=== PATIENT | female | born 1975 | race Two or more races ===

== ENCOUNTER 2019-11-08 06:00 | Day surgery (SDC) | payer OTHER ==
[2019-11-08] MEDS ORDERED: CARAFATE1 GM/10 ML PO (12:35)
== END 2019-11-08 14:24 | disposition home or self-care (01) ==
LOC: AMB-ENDOS 06:00
PROVIDERS: ATTEND Surgery
DX: K29.50 Unspecified chronic gastritis without bleeding (principal); Z20.828 Contact with and (suspected) exposure to other viral communicable diseases

== ENCOUNTER 2020-11-07 06:20 | Day surgery (SDC) | payer OTHER ==
[~2020-11-07 06:20] MED LIST: CARAFATE1 GM/10 ML PO
== END 2020-11-07 11:30 | disposition home or self-care (01) ==
LOC: AMB-ENDOS 06:20
PROVIDERS: ATTEND Surgery
DX: K62.89 Other specified diseases of anus and rectum (principal); K64.0 First degree hemorrhoids; Z20.822 Contact with and (suspected) exposure to COVID-19